=== PATIENT | male | born 1960 | race Caucasian/White ===

== ENCOUNTER 2024-09-28 11:08 | Inpatient (IN) | payer MEDICARE, BC, SELFPAY ==
[2024-09-28] VITALS (24 sets, daily range): BP systolic 128–150; BP diastolic 86–96; PULSE 75–105; RESP 12–18; TEMP 36.4; O2SAT 84–98; BMI 26.9; BMI 27.2
--- NOTE | 2024-09-28 11:32 | CRLHL7_ITS ---
For Patients: As a result of the Century Cures Act, medical imaging exams and procedure reports are released immediately into your electronic medical record. You may view this report before your referring provider. If you have questions, please contact your health care provider. Indication: Headache, balance and vision problems Technique: Volumetric multidetector CT images of the head were obtained without the administration of low osmolar intravenous contrast. Comparison: None available Findings: There is no intra-axial or extra-axial fluid collection. There is demonstration of a hyperdense circumscribed expansile mass arising from the pituitary gland with widening of the sella turcica and extension into the suprasellar cistern measuring 3.9 x 1.7 x 1.8 centimeters in craniocaudal, transverse and AP dimensions respectively. There is moderate effacement of the optic chiasm. There is age-related cortical atrophy with mild sulcal widening and ex vacuo dilatation of the lateral ventricles. There are chronic small vessel disease changes in the subcortical and periventricular white matter without lost felton-white differentiation. The orbits and their contents are grossly within normal limits. The bony calvarium is grossly intact. The paranasal sinuses are clear. The mastoid air cells are well aerated. 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 Further evaluation with pituitary protocol MRI is recommended. No other acute intracranial abnormalities are appreciated. Please note that all CT scans at this facility use dose modulation, iterative reconstruction, and/or weight-based dosing when appropriate to reduce radiation dose to as low as reasonably achievable. Dictated by Deejay Tellez MD @ 09/28/2024 1:20:06 PM (Electronically Signed)
--- NOTE | 2024-09-28 11:33 | CRLHL7_ITS ---
For Patients: As a result of the Century Cures Act, medical imaging exams and procedure reports are released immediately into your electronic medical record. You may view this report before your referring provider. If you have questions, please contact your health care provider. INDICATION: Headache, balance and vision problems. TECHNIQUE: CTA neck with contrast bolus tracking, 3D angiographic rendering using maximum intensity projection (MIP) and images permanently archived. FINDINGS: Irregular ulcerated plaque is present in the proximal internal carotid arteries bilaterally resulting in mild stenoses on both sides, less than 50 percent by NASCET. There is no significant vertebral artery stenosis or dissection. The soft tissues of the neck are within normal limits. The cervical spine is in normal alignment. Degenerative changes are noted in the cervical spine. IMPRESSION: Ulcerated plaque in the proximal ICAs bilaterally resulting in mild stenoses, less than 50 percent by NASCET. Please note that all CT scans at this facility use dose modulation, iterative reconstruction, and/or weight-based dosing when appropriate to reduce radiation dose to as low as reasonably achievable. Dictated by Randall Nicole MD @ 09/28/2024 2:47:58 PM (Electronically Signed)
--- NOTE | 2024-09-28 11:33 | CRLHL7_ITS ---
For Patients: As a result of the Century Cures Act, medical imaging exams and procedure reports are released immediately into your electronic medical record. You may view this report before your referring provider. If you have questions, please contact your health care provider. INDICATION: Headache, balance and vision problems. TECHNIQUE: CTA head with contrast bolus tracking, 3D angiographic rendering using maximum intensity projection (MIP) and images permanently archived. FINDINGS: There is scattered intracranial atherosclerotic disease. There is normal opacification of the intracranial vasculature. There is no large vessel occlusion. No aneurysm is identified. IMPRESSION: No large vessel occlusion. Please note that all CT scans at this facility use dose modulation, iterative reconstruction, and/or weight-based dosing when appropriate to reduce radiation dose to as low as reasonably achievable. Dictated by Randall Nicole MD @ 09/28/2024 2:49:04 PM (Electronically Signed)
--- NOTE | 2024-09-28 11:36 | ED_ITS ---
HPI - General Adult General Date Seen: 09/28/24 Chief complaint: Neuro Symptoms/Altered Deficit Stated complaint: migraine since Wednesday, unsteady Time Seen by Provider: 09/28/24 11:14 History of Present Illness HPI narrative: Patient is a 64-year-old male here with his girlfriend for evaluation of headache, some vision and balance changes. Patient is a rather meandering historian and history is kind of difficult to obtain. What I have put together is that last weekend he developed a headache which was on both sides of his head, associated with vomiting. Prior to that he had had some neck stiffness which he attributed to gardening. He notes that the vomiting stopped after the weekend but he has continued to have a headache, it sounds like it is more mild and perhaps is more on the right side of his head. He has had some temporal pain although he says that that is not unusual and he will often use some kind of muscle relaxation tool on his face when he has pain in his temples and forehead. At some point, his vision has seemed off. It is very difficult to tell in what way his vision is different. He notes that his right eye is always weaker than the left, he is unable to tell me if the right eye specifically is worse than usual. Initially he said that he was having diplopia, but as we talked further I am not sure that he is having diplopia. His girlfriend also notes that his balance has been wobbly, which she says is new, he says he is always a little bit wobbly. He does deny fevers or unusual rashes, denies head trauma. He is not anticoagulated. 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) ?Z96.642 - Presence of left artificial hip joint (ICD-10) Social History What is your current living situation?: I presently have a place to live Problems where you live: no known problems Problems where you live details: na In the past 12 months, utilities in danger of being shut off: no In past 12 months, lack of transportation kept you from medical appts, meetings, work, or getting things needed for daily living: no In the past 12 mos, have been you worried that your food would run out before you had money to buy more?: never true In the past 12 mos, the food you bought just didn't last and you didn't have money to buy more?: never true Highest level of school completed/degree received: some college, no degree Smoking Status: Former smoker What tobacco products do you use: cigars Do you use any of these nicotine containing products: None Second hand tobacco smoke exposure: No How often do you have a drink containing alcohol: 2-3 times a week Alcohol type: beer How many standard drinks containing alcohol do you have on a typical day: 1 or 2 How often do you have six or more drinks on one occasion: Weekly AUDIT-C Alcohol total score: 6 Non-prescribed substance use: marijuana (any form) Caffeine: Yes (2 cups) How often does anyone, including family, friends and others, physically hurt you : never How often does anyone, including family, friends and others, insult or talk down to you: never How often does anyone, including family, friends and others, threaten you with harm: never How often does anyone, including family, friends and others, scream or curse at you: never service: No Exam Narrative: Exam Narrative: Vital signs reviewed In general, alert, nontoxic elderly male. Looks comfortable. Head: Normocephalic, atraumatic. Eyes: Sclera clear. Pupils equal and reactive. Extraocular movements are full, no nystagmus. ENT: Mucous membranes moist. Throat is normal, tongue midline. No temporal tenderness. Neck: Supple without adenopathy. Heart: Regular rate and rhythm without murmur. Lungs: Clear. No increased work of breathing, crackles or wheezes. Abdomen: Soft, nontender to palpation. Extremities: Well perfused, pulses intact. No significant edema. Neurologic: Alert, conversant. Speech fluent, face symmetric. Moves all extremities equally. Cerebellar function is intact by finger-nose testing. Romberg is negative. However, when I had him take a couple of steps he is fairly unsteady and tends to fall to the right. He may have of field cut on the right, it is a little difficult to assess as he gives differing answers at different times and it is hard to get him to focus his vision centrally rather than glancing over into his peripheral vision. Skin: Warm, dry well perfused. Affect: Normal. Const: Vital Signs, click to edit/add: Vital Signs - 24 hr 09/28/24 15:00 09/28/24 15:02 09/28/24 15:30 Pulse Rate 80 78 76 Respiratory Rate 14 14 16 Blood Pressure 141/89 H Pulse Oximetry 97 96 96 Oxygen Delivery Me thod Room Air Room Air Room Air 09/28/24 15:34 09/28/24 16:00 09/28/24 16:02 Pulse Rate 82 75 76 Respiratory Rate 14 12 12 Blood Pressure 145/96 H 150/96 H Pulse Oximetry 98 98 95 Oxygen Delivery Me thod Room Air Room Air Room Air 09/28/24 16:03 09/28/24 16:30 09/28/24 16:32 Pulse Rate 80 83 Respiratory Rate 14 17 18 Blood Pressure 142/93 H Pulse Oximetry 97 95 Oxygen Delivery Me thod Room Air Room Air Room Air Documenting provider has reviewed patient's vital signs: yes Course Course ED Course: I have ordered a CT of the head and CT angiogram of the head and neck to evaluate for possible intracranial hemorrhage or edema, will look for any evidence of large vessel stenosis or dissection. If these are negative, I think MRI will be warranted to look for more of an ischemic event. I have ordered labs including a CRP and sed rate, my suspicion for temporal arteritis is relat ively low but history and exam are so difficult to nail down that think this needs to be ruled out as well. Labs were most notable for a sodium of 124, we do not have any labs on him recently so I do not know what his baseline sodium is. I reviewed his head CT, he has a hyperdense mass arising from the sella turcica, suspect pituitary adenoma. There is a little bit of surrounding edema. I do not see any hemorrhage or other mass effect. Radiology reports for the CT of the head and CT angiogram of head and neck were reviewed. CT angiogram unremarkable. I gave him 50 mL of hypertonic saline. CRP was 5.7, sed rate 51. Other electrolytes specifically potassium are normal, with the exception of his chloride which is low at 89. Radiology read of the CT of the head consistent with pituitary adenoma, MRI recommended. This is ordered but will not be done until after my shift. In the meantime, I did discuss his care with Neurosurgery 1st the neurosurgery PA and then I talked with the neurosurgeon himself. He reviewed the images. Patient does need to be admitted for hyponatremia, but he felt that otherwise could be managed as an outpatient for the pituitary adenoma. I have added on a couple of labs, he would like a TSH, morning cortisol, prolactin. I did review the MRI on my next shift, attached below, but this was not done until after my shift ended. Patient was signed out with anticipation of admission to the hospitalist service for correction of his sodium. Vital Signs Vital signs: Initial Vital Signs Temperature 97.6 F 09/28/24 11:26 Temperature Source Temporal Artery Scan 09/28/24 11:26 Pulse Rate 91 09/28/24 11:26 Respiratory Rate 18 09/28/24 11:26 Blood Pressure 147/91 H 09/28/24 11:26 Blood Pressure Mean 109 H 09/28/24 11:26 Blood Pressure Position Semi-Fowlers 09/28/24 11:26 Pulse Oximetry 97 09/28/24 11:26 Oxygen Delivery Method Room Air 09/28/24 11:26 Vital Signs Temperature 97.6 F 09/28/24 11:26 Pulse Rate 91 09/28/24 11:26 Respiratory Rate 18 09/28/24 11:26 Blood Pressure 147/91 H 09/28/24 11:26 Pulse Oximetry 97 09/28/24 11:26 Oxygen Delivery Method Room Air 09/28/24 11:26 Temperature 97.6 F 09/28/24 22:07 Pulse Rate 85 09/28/24 23:28 Respiratory Rate 18 09/28/24 22:07 Blood Pressure 130/93 H 09/28/24 22:07 Pulse Oximetry 97 09/28/24 22:07 Oxygen Delivery Method Room Air 09/28/24 22:07 Medications Administered Medications: Discontinued Medications Generic Name Dose Route Start Last Admin Trade Name Freq PRN Reason Stop Dose Admin Enoxaparin Sodium 40 mg 09/28/24 21:00 09/28/24 21:53 Enoxaparin 40 Mg/0.4 Ml Inj SUBCUT 40 mg HS BOSSMAN Administration Sodium Chloride 50 mls @ 33.333 mls/hr 09/28/24 13:59 09/28/24 15:48 3 % Sodium Chloride 500 Ml IV 09/28/24 15:28 Infused ONCE ONE Infusion Sodium Chloride 1,000 mls @ 75 mls/hr 09/28/24 14:52 09/28/24 15:55 0.9 % Sodium Chloride 1000 Ml IV 75 mls/hr .[id number] BOSSMAN Administration Sodium Chloride 1,000 mls @ 125 mls/hr 09/28/24 17:23 09/28/24 21:54 0.9 % Sodium Chloride 1000 Ml IV 125 mls/hr .Q8H BOSSMAN Administration Sodium Chloride 1,000 mls @ 1,000 mls/hr 09/28/24 18:56 09/28/24 19:46 0.9 % Sodium Chloride 1000 Ml IV 09/28/24 19:55 1,000 mls/hr .Q1H BOSSMAN Administration Potassium Chloride 40 meq 09/28/24 18:27 09/28/24 19:46 Potassium Chloride 10 Meq Capsule Er PO 09/28/24 18:28 40 meq ONCE ONE Administration Sodium Chloride 5 ml 09/28/24 21:00 09/28/24 21:53 Sodium Chloride 0.9 % (Flush) 10 Ml Syringe IVF 5 ml BID BOSSMAN Administration Medical Decision Making Lab Data Lab results reviewed: Yes I reviewed the patient's lab results Labs: Lab Results 09/28/24 09/28/24 Range/Units 11:30 11:55 ESR 51 H (2-15) mm/hr Sodium 124 L* (135-149) mmol/L Potassium 3.5 L (3.6-5.1) mmol/L Chloride 89 L (96-114) mmol/L Carbon Dioxide 23 (20-32) mmol/L Anion Gap 12 (7-15) mEq/L BUN 13 (7-30) mg/dL Creatinine 0.9 (0.5-1.5) mg/dL Estimated Creat Clear 73.65 Estimated GFR 95 ml/min Glucose 100 (60-115) mg/dL Calcium 9.2 (8.4-10.6) mg/dL Total Bilirubin 0.9 (0.1-1.5) mg/dL AST 21 (12-35) U/L ALT 18 (4-50) U/L Alkaline Phosphatase 50 (40-150) U/L C-Reactive Protein 5.7 H (0.5-1.0) mg/dL Total Protein 7.4 (6.0-8.3) g/dL Albumin 4.2 (3.3-5.0) g/dL TSH 0.555 (0.270-4.200) uIU/mL Imaging Data CT scan - head: Attestation: I have reviewed the pertinent imaging results. Radiologist's impression: [place] [address] Diagnostic Imaging Report Patient: Juni Nash MR#: [id number] : 1960 Acct:[id number] Loc: ED Service Date: 09/28/[address]: Ordering Physician: Chayito Blum M.D. Date of Service: 09/28/24 Procedure(s): CT head/brain wo con Accession Number(s): [id number] cc: Chayito Blum M.D.; Sumit Wallace M.D.~ For Patients: As a result of the Cures Act, medical imaging exams and procedure reports are released immediately into your electronic medical record. You may view this report before your referring provider. If you have questions, please contact your health care provider. Indication: Headache, balance and vision problems Technique: Volumetric multidetector CT images of the head were obtained without the administration of low osmolar intravenous contrast. Comparison: None available Findings: There is no intra-axial or extra-axial fluid collection. There is demonstration of a hyperdense circumscribed expansile mass arising from the pituitary gland with widening of the sella turcica and extension into the suprasellar cistern measuring 3.9 x 1.7 x 1.8 centimeters in craniocaudal, transverse and AP dimensions respectively. There is moderate effacement of the optic chiasm. There is age-related cortical atrophy with mild sulcal widening and ex vacuo dilatation of the lateral ventricles. There are chronic small vessel disease changes in the subcortical and periventricular white matter without lost felton-white differentiation. The orbits and their contents are grossly within normal limits. The bony calvarium is grossly intact. The paranasal sinuses are clear. The mastoid air cells are well aerated. 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 Further evaluation with pituitary protocol MRI is recommended. No other acute intracranial abnormalities are appreciated. Please note that all CT scans at this facility use dose modulation, iterative reconstruction, and/or weight-based dosing when appropriate to reduce radiation dose to as low as reasonably achievable. Dictated by Deejay Tellez MD @ 09/28/2024 1:20:[address] angiogram head and neck: Attestation: I have reviewed the pertinent imaging results. Radiologist's impression: [place] [address] Diagnostic Imaging Report Patient: Juni Nash MR#: [id number] : 1960 Acct:[id number] Loc: ED Service Date: 09/28/[address]: Ordering Physician: Chayito Blum M.D. Date of Service: 09/28/24 Procedure(s): CT angio head Accession Number(s): [id number] cc: Chayito Blum M.D.; Sumit Wallace M.D.~ For Patients: As a result of the 21st Century Cures Act, medical imaging exams and procedure reports are released immediately into your electronic medical record. You may view this report before your referring provider. If you have questions, please contact your health care provider. INDICATION: Headache, balance and vision problems. TECHNIQUE: CTA head with contrast bolus tracking, 3D angiographic rendering using maximum intensity projection (MIP) and images permanently archived. FINDINGS: There is scattered intracranial atherosclerotic disease. There is normal opacification of the intracranial vasculature. There is no large vessel occlusion. No aneurysm is identified. IMPRESSION: No large vessel occlusion. Please note that all CT scans at this facility use dose modulation, iterative reconstruction, and/or weight-based dosing when appropriate to reduce radiation dose to as low as reasonably achievable. Dictated by Radnall Nicole MD @ 09/28/2024 2:49:04 PM MRI brain pituitary protocol: Attestation: I have reviewed the pertinent imaging results. Radiologist's impression: [address] [address] Diagnostic Imaging Report Patient: Juni Nash MR#: [id number] : 1960 Acct:[id number] Loc: [id number] Service Date: 09/28/[address]: Alethea Duron M.D. Ordering Physician: Chayito Blum M.D. Date of Service: 09/28/24 Procedure(s): MR head/brain wo/w con Accession Number(s): [id number] cc: Chayito Blum M.D.; Sumit Wallace M.D.~ For Patients: As a result of the Cures Act, medical imaging exams and procedure reports are released immediately into your electronic medical record. You may view this report before your referring provider. If you have questions, please contact your health care provider. INDICATION: Abnormal CT, intracranial mass. TECHNIQUE: Multisequence multiplanar MRI of the brain prior to and following administration of 20 cc Dotarem gadolinium-based intravenous contrast. Pituitary protocol was utilized. COMPARISON: Correlated with CT head from earlier the same day 09/28/2024. FINDINGS: No evidence of acute ischemia. Scattered scattered foci of T2 prolongation within the white matter of both cerebral hemispheres typical of mild chronic small vessel ischemic changes. Additional more confluent T2 hyperintensity within the hypothalami and lower basal ganglia likely reflecting edema related to mass effect from a sellar/suprasellar mass. A tiny focus of enhancement within the white matter of the left frontal smith radiata is favored to be vascular in etiology. There is mild diffuse parenchymal volume loss. The ventricles are proportionate to the sulci. Flow voids of the larger intracranial arteries are preserved. Dedicated imaging of the pituitary gland demonstrates a large heterogeneously enhancing sellar/suprasellar mass which is indistinguishable from the pituitary gland, measuring approximately 2.1 x 3.2 x 4.0 cm. The lesion extends to the left lateral tangential line indicating possible cavernous sinus invasion. There is up lifting and distortion of the optic chiasm and infundibulum. Normal calvarial bone marrow signal intensity. Symmetric globes. Mild scattered paranasal sinus mucosal thickening. IMPRESSION: 1. Motion degraded exam. 2. 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 3. Confluent T2/FLAIR hyperintensity, likely edema, within the hypothalami and lower basal ganglia. 4. Mild diffuse parenchymal volume loss and presumed chronic small vessel ischemic changes. 5. Punctate enhancement within the left frontal smith radiata (series 11, image 30) favored to be vascular in etiology. Dictated by Jimenez Shah MD @ 09/28/2024 6:13:22 PM Discharge Plan Discharge Clinical Impression: Adenoma of pituitary, Hyponatremia Patient Disposition: Admitted As Observation Condition: Stable
[2024-09-28 12:26] LABS: Chloride* 89 mmol/L (96-114)
[2024-09-28 12:27] LABS: Albumin* 4.2 g/dL (3.3-5.0); Potassium* 3.5 mmol/L (3.6-5.1)
[2024-09-28 12:29] LABS: Blood Urea Nitrogen* 13 mg/dL (7-30); Creatinine* 0.9 mg/dL (0.5-1.5); Est. Creatinine Clearance* 73.65; Estimated Glomerular Filt Rate 95 ml/min
[2024-09-28 12:30] LABS: Alanine Aminotransferase* 18 U/L (4-50); Alkaline Phosphatase* 50 U/L (40-150); Anion Gap 12 mEq/L (7-15); Aspartate Amino Transferase* 21 U/L (12-35); Bilirubin Total* 0.9 mg/dL (0.1-1.5); Calcium* 9.2 mg/dL (8.4-10.6); Carbon Dioxide* 23 mmol/L (20-32); Glucose* 100 mg/dL (60-115); Total Protein* 7.4 g/dL (6.0-8.3)
[2024-09-28 12:33] LABS: C Reactive Protein* 5.7 mg/dL (0.5-1.0)
[2024-09-28 12:38] LABS: Sodium* 124 mmol/L (135-149)
[2024-09-28 12:44] LABS: Erythrocyte SedimentationRate* 51 mm/hr (2-15)
--- NOTE | 2024-09-28 13:27 | CRLHL7_ITS ---
For Patients: As a result of the Century Cures Act, medical imaging exams and procedure reports are released immediately into your electronic medical record. You may view this report before your referring provider. If you have questions, please contact your health care provider. INDICATION: Abnormal CT, intracranial mass. TECHNIQUE: Multisequence multiplanar MRI of the brain prior to and following administration of 20 cc Dotarem gadolinium-based intravenous contrast. Pituitary protocol was utilized. COMPARISON: Correlated with CT head from earlier the same day 09/28/2024. FINDINGS: No evidence of acute ischemia. Scattered scattered foci of T2 prolongation within the white matter of both cerebral hemispheres typical of mild chronic small vessel ischemic changes. Additional more confluent T2 hyperintensity within the hypothalami and lower basal ganglia likely reflecting edema related to mass effect from a sellar/suprasellar mass. A tiny focus of enhancement within the white matter of the left frontal smith radiata is favored to be vascular in etiology. There is mild diffuse parenchymal volume loss. The ventricles are proportionate to the sulci. Flow voids of the larger intracranial arteries are preserved. Dedicated imaging of the pituitary gland demonstrates a large heterogeneously enhancing sellar/suprasellar mass which is indistinguishable from the pituitary gland, measuring approximately 2.1 x 3.2 x 4.0 cm. The lesion extends to the left lateral tangential line indicating possible cavernous sinus invasion. There is up lifting and distortion of the optic chiasm and infundibulum. Normal calvarial bone marrow signal intensity. Symmetric globes. Mild scattered paranasal sinus mucosal thickening. IMPRESSION: 1. Motion degraded exam. 2. 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 3. Confluent T2/FLAIR hyperintensity, likely edema, within the hypothalami and lower basal ganglia. 4. Mild diffuse parenchymal volume loss and presumed chronic small vessel ischemic changes. 5. Punctate enhancement within the left frontal smith radiata (series 11, image 30) favored to be vascular in etiology. Dictated by Jimenez Shah MD @ 09/28/2024 6:13:22 PM (Electronically Signed)
[2024-09-28] MEDS: 3 % SODIUM CHLORIDE 500 ml 50 ML 33.33 ML IV (14:17)
[2024-09-28] MEDS: 0.9 % SODIUM CHLORIDE 1000 ml 1,000 ML 75 ML IV (15:55)
--- NOTE | 2024-09-28 16:49 | P.IMHP_ITS ---
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 Confluent T2/FLAIR hyperintensity, likely edema, within the hypothalami and lower basal ganglia. Mild diffuse parenchymal volume loss and presumed chronic small vessel ischemic changes. Punctate enhancement within the left frontal smith radiata (series 11, image 30) favored to be vascular in etiology ED provider discussed with Neurosurgery, recommending outpatient follow-up in the neurology clinic. Requesting following labs prolactin, TSH, a.m. 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 Confluent T2/FLAIR hyperintensity, likely edema, within the hypothalami and lower basal ganglia. Discussed with Dr. Wheeler, Neurosurgery, following admission to floor. Recommending transfer for neuro evaluation. Will likely need non emergent surgical intervention. Current findings have likely been slowly developing. Not recommending steroids at this time, awaiting a.m. cortisol. Currently 8 hour bed wait for [facility]. Discussed with telehospitalist, Dr. Reyes, accepts for transfer Status: Acute (3) Visual changes: Problem comment: MRI findings as noted #3 Status: Acute (4) Hyponatremia: Problem comment: Sodium 124 Given 50ml hypertonic 3% saline in ED Recheck on admission to floor, 120. Likely dry, has not eaten or drank much over past week. Will give 1L NS bolus and recheck in 2 hours. Maintenance NS 125ml Status: Acute (5) Hypokalemia: Problem comment: Mild, potassium 3.5 Oral replacement, monitor Status: Acute (6) Carotid stenosis, bilateral: Problem comment: Mild, <50% Lipid panel ordered Status: Acute Total Time Spent Total Time Spent: Today I spent 90 minutes seeing the patient, reviewing Expanse and EPIC notes/diagnostics, discussing the care plan with our care time that includes social work, PT/OT, pharmacy, RT, halfway and documenting my impressions and plan in the medical record. Hospitalist- H&P: ANKIT History of Present Illness Date Seen: 09/28/24 Chief complaint: migraine since Wednesday, unsteady Narrative: Juni Nash is a 64 year old male without known significant past medical history other than left shoulder surgery and left SHAHEEN. Has not seen a medical provider in the last 12-13 years. Is not on any prescription medications. Does take several supplements/vitamins. Is admitted to the medical floor from the ED for further management hyponatremia and headache of 6 days with persistent visual changes. Patient is seen with his partner, Malena, at bedside. She stays with him on the weekends. Patient reports onset of mild headache Wednesday09/22/2024. Quickly escalated to an intense headache leading to nausea and vomiting. Nausea and vomiting lasted through Wednesday and has since resolved. Headache has persisted a nd is finally reported as ?little today. Headache has been frontal as well as both temples. He tells me it felt like what he would in manage in a cluster or migraine headache would feel like. He has no history of those types of headaches and rarely gets headaches. Also reports change in vision which persists now. Reports double vision, seen 2 semi trucks in front of them on the way to the ED today 1 in fact there is only 1. Tells me he sees odd angles on huang and ceilings from the right eye. No curtains, tunnel vision, spots, floaters. No loss of vision in either eye. No ocular pain. Denies ringing in the ears. No change in smell. Denies any dizziness or lightheadedness. No vertiginous symptoms. Denies facial droop. No slurring of speech. No aphasia. Denies recent fevers or chills. Denies chest pain or shortness of breath. Denies abdominal pain. No change in stools other than decreased as he has not eaten much. Denies change in urination or UTI symptoms. No blood in his urine. No swelling of the hands or feet. No focal weakness of the extremities. In general, feels weak/fatigued. States he has not slept in days. Tosses and turns in bed with his headache, eventually moving to a different room. Has not eaten much since vomiting ended on Wednesday. Is currently hungry. His friend Malena says he has been eating peanuts today. Tells me he has never been treated for hypertension, hyperlipidemia, no known lung disease, no diabetes. Has not kept up-to-date with his routine exams. Nonsmoker. Drinks 2 drinks maybe twice a week. Has no current PCP. Last saw Dr. Wallace 12-13 years ago. Wishes to be full code. Review of Systems Narrative: REVIEW OF SYSTEMS: Complete review of systems performed and negative unless otherwise stated in HPI or below. 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) ?Z96.642 - Presence of left artificial hip joint (ICD-10) Social History What is your current living situation?: I presently have a place to live Problems where you live: no known problems Problems where you live details: na In the past 12 months, utilities in danger of being shut off: no In past 12 months, lack of transportation kept you from medical appts, meetings, work, or getting things needed for daily living: no In the past 12 mos, have been you worried that your food would run out before you had money to buy more?: never true In the past 12 mos, the food you bought just didn't last and you didn't have money to buy more?: never true Highest level of school completed/degree received: some college, no degree Smoking Status: Former smoker What tobacco products do you use: cigars Do you use any of these nicotine containing products: None Second hand tobacco smoke exposure: No How often do you have a drink containing alcohol: 2-3 times a week Alcohol type: beer How many standard drinks containing alcohol do you have on a typical day: 1 or 2 How often do you have six or more drinks on one occasion: Weekly AUDIT-C Alcohol total score: 6 Non-prescribed substance use: marijuana (any form) Caffeine: Yes (2 cups) How often does anyone, including family, friends and others, physically hurt you : never How often does anyone, including family, friends and others, insult or talk down to you: never How often does anyone, including family, friends and others, threaten you with harm: never How often does anyone, including family, friends and others, scream or curse at you: never service: No Meds Home Medications and Allergies Home Medications ?Medication ?Instructions ?Recorded ?Confirmed ?Type amoxicillin 500 mg capsule 2,000 mg PO ONCE 05/07/22 09/28/24 History Allergies Allergy/AdvReac Type Severity Reaction Status Date / Time No Known Drug Allergies Allergy Verified 09/28/24 13:00 Exam 2 Narrative: Exam Narrative: PHYSICAL EXAM General: Pleasant, appears tired otherwise NAD HEENT: Normocephalic, atraumatic, sclera white but blood shot, EOMI, oral mucosa dry Cardiovascular: RRR, S1S2. No pitting edema Pulmonary: CTA bilaterally without rhonchi, rales, expiratory wheezes. No dyspnea on RA Abdominal: Soft, nondistended, NTTP Neurological: Alert, answering questions appropriately but slowed, no confusion, no facial droop, cranial nerves intact, UE/LE strength equal 5/5. When attempting to feed self, eye-hand to mouth coordination noted to be off by nursing staff Extremities: No gross joint deformity or swelling. AROMI. Neurovascularly intact Skin: Warm, dry. Const: Vital Signs, click to edit/add: Vital Signs - 24 hr 09/28/24 11:26 09/28/24 13:26 09/28/24 13:26 Temperature 97.6 F Pulse Rate 90 90 Pulse Rate [Pulse Oximeter] 91 Respiratory Rate 18 Blood Pressure 143/91 H 143/91 H Blood Pressure [Ri ght Upper Arm] 147/91 H Pulse Oximetry 97 94 94 Oxygen Delivery Me thod Room Air Room Air Room Air 09/28/24 13:27 09/28/24 13:30 09/28/24 13:32 Temperature Pulse Rate 93 87 90 Pulse Rate [Pulse Oximeter] Respiratory Rate Blood Pressure 128/87 Blood Pressure [Ri ght Upper Arm] Pulse Oximetry 96 94 89 Oxygen Delivery Me thod Room Air Room Air Room Air 09/28/24 13:36 09/28/24 14:00 09/28/24 14:02 Temperature Pulse Rate 82 105 H Pulse Rate [Pulse Oximeter] 92 Respiratory Rate 18 Blood Pressure 132/94 H Blood Pressure [Ri ght Upper Arm] 128/87 Pulse Oximetry 96 92 84 [facility] 09/28/24 14:30 09/28/24 14:31 09/28/24 15:00 Temperature Pulse Rate 84 84 80 Pulse Rate [Pulse Oximeter] Respiratory Rate 16 17 14 Blood Pressure 143/95 H Blood Pressure [Ri ght Upper Arm] Pulse Oximetry 96 96 97 [facility] Room Air 09/28/24 15:02 09/28/24 15:30 09/28/24 15:34 Temperature Pulse Rate 78 76 82 Pulse Rate [Pulse Oximeter] Respiratory Rate 14 16 14 Blood Pressure 141/89 H 145/96 H Blood Pressure [Ri ght Upper Arm] Pulse Oximetry 96 96 98 [facility] Room Air 09/28/24 16:00 09/28/24 16:02 Temperature Pulse Rate 75 76 Pulse Rate [Pulse Oximeter] Respiratory Rate 12 12 Blood Pressure 150/96 H Blood Pressure [Ri ght Upper Arm] Pulse Oximetry 98 95 [facility] Air Hospitalist - H&P: Result Labs Labs: [facility] 09/28/24 11:55 Sodium 124 L* Potassium 3.5 L Chloride 89 L Carbon Dioxide 23 BUN 13 Creatinine 0.9 Glucose 100 Calcium 9.2 Liver Function 09/28/24 Range/Units 11:55 Total Bilirubin 0.9 (0.1-1.5) mg/dL AST 21 (12-35) U/L ALT 18 (4-50) U/L Alkaline Phosphatase 50 (40-150) U/L Albumin 4.2 (3.3-5.0) g/dL Imaging CT scan - head: Attestation: I have reviewed the pertinent imaging results. Radiologist's impression: There is no intra-axial or extra-axial fluid collection. There is demonstration of a hyperdense circumscribed expansile mass arising from the pituitary gland with widening of the sella turcica and extension into the suprasellar cistern measuring 3.9 x 1.7 x 1.8 centimeters in craniocaudal, transverse and AP dimensions respectively. There is moderate effacement of the optic chiasm. There is age-related cortical atrophy with mild sulcal widening and ex vacuo dilatation of the lateral ventricles. There are chronic small vessel disease changes in the subcortical and periventricular white matter without lost felton-white differentiation. The orbits and their contents are grossly within normal limits. The bony calvarium is grossly intact. The paranasal sinuses are clear. The mastoid air cells are well aerated. 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 Further evaluation with pituitary protocol MRI is recommended. No other acute intracranial abnormalities are appreciated. CTA head: Attestation: I have reviewed the pertinent imaging results. Radiologist's impression: There is scattered intracranial atherosclerotic disease. There is normal opacification of the intracranial vasculature. There is no large vessel occlusion. No aneurysm is identified. IMPRESSION: No large vessel occlusion. CTA neck: Attestation: I have reviewed the pertinent imaging results. Radiologist's impression: Irregular ulcerated plaque is present in the proximal internal carotid arteries bilaterally resulting in mild stenoses on both sides, less than 50 percent by NASCET. There is no significant vertebral artery stenosis or dissection. The soft tissues of the neck are within normal limits. The cervical spine is in normal alignment. Degenerative changes are noted in the cervical spine. IMPRESSION: Ulcerated plaque in the proximal ICAs bilaterally resulting in mild stenoses, less than 50 percent by NASCET. MRI brain: Attestation: I have reviewed the pertinent imaging results. Radiologist's impression: No evidence of acute ischemia. Scattered scattered foci of T2 prolongation within the white matter of both cerebral hemispheres typical of mild chronic small vessel ischemic changes. Additional more confluent T2 hyperintensity within the hypothalami and lower basal ganglia likely reflecting edema related to mass effect from a sellar/suprasellar mass. A tiny focus of enhancement within the white matter of the left frontal smith radiata is favored to be vascular in etiology. There is mild diffuse parenchymal volume loss. The ventricles are proportionate to the sulci. Flow voids of the larger intracranial arteries are preserved. Dedicated imaging of the pituitary gland demonstrates a large heterogeneously enhancing sellar/suprasellar mass which is indistinguishable from the pituitary gland, measuring approximately 2.1 x 3.2 x 4.0 cm. The lesion extends to the left lateral tangential line indicating possible cavernous sinus invasion. There is up lifting and distortion of the optic chiasm and infundibulum. Normal calvarial bone marrow signal intensity. Symmetric globes. Mild scattered paranasal sinus mucosal thickening. IMPRESSION: 1. Motion degraded exam. 2. 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 3. Confluent T2/FLAIR hyperintensity, likely edema, within the hypothalami and lower basal ganglia. 4. Mild diffuse parenchymal volume loss and presumed chronic small vessel ischemic changes. 5. Punctate enhancement within the left frontal smith radiata (series 11, image 30) favored to be vascular in etiology.
[2024-09-28 18:31] LABS: Basophils Absolute Auto 0.04 K/uL (0.00-0.30); Basophils Percent Auto 0.5 % (0.0-3.0); Eosinophils Absolute Auto 0.33 K/uL (0.00-0.50); Eosinophils Percent Auto 3.7 % (0.0-7.0); Hematocrit* 37.5 % (37.0-53.0); Hemoglobin* 13.5 gm/dL (13.5-17.5); Immature Granulocytes Abs Auto 0.02 K/uL (0.00-0.30); Immature Granulocytes Pct Auto 0.2 %; Lymphocytes Percent Auto 29.3 % (20-44); Mean Corpuscular HGB Conc 36 gm/dL (32-36); Mean Corpuscular Hemoglobin 31 pg (26-34); Mean Corpuscular Volume 86 fL (80-100); Monocytes Percent Auto 10.1 % (0.0-11.0); Neutrophils Absolute Auto 4.98 K/uL (1.7-7.0); Neutrophils Percent Auto 56.2 % (42.0-72.0); Platelet Count* 247 K/uL (140-440); RDW Coefficient of Variation % 11.5 % (11.5-15.5); Red Blood Count* 4.34 m/uL (4.30-5.90); White Blood Count* 8.87 K/uL (4.50-11.00)
[2024-09-28 18:46] LABS: Slide Review Reflex No
[2024-09-28 18:51] LABS: Sodium* 120 mmol/L (135-149)
[2024-09-28] MEDS: POTASSIUM CHLORIDE 10 MEQ CAPSULE ER 40 MEQ PO (19:46)
[2024-09-28] MEDS: 0.9 % SODIUM CHLORIDE 1000 ml 1,000 ML IV (19:46)
[2024-09-28 20:11] LABS: TSH With Reflex to FT4* 0.555 uIU/mL (0.270-4.200)
--- NOTE | 2024-09-28 21:16 | P.DS_ITS ---
DS: Providers Provider Date Seen: 09/28/24 Date of admission: 09/28/24 17:27 Primary care physician: Sumit Wallace MD Admitting Clinician: AZIZA Escalante PA-C Consults: 09/28/24 17:23 Consult to Occupational Therapy [CONS] Routine Comment: Reason(s) for OT Consult:: Evaluate and Treat Any Restrictions?:: No Restrictions Consult to Physical Therapy [CONS] Routine Comment: Reason(s) for PT Consult:: Evaluate and Treat Any Restrictions?:: No Restrictions Attending Physician on discharge: AZIZA Escalante PA-C DS: Diagnosis Discharge Diagnosis (1) Headache: Status: Acute Problem details: Onset 6 days ago, 09/22 Nausea, vomiting, visual changes CT head shows Demonstration of a 3.9 centimeter in greatest dimension circumscribed hyperdense mass arising from the pituitary gland with extension into the suprasellar cistern and effacement of the optic chiasm 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 Confluent T2/FLAIR hyperintensity, likely edema, within the hypot halami and lower basal ganglia. Mild diffuse parenchymal volume loss and presumed chronic small vessel ischemic changes. Punctate enhancement within the left frontal smith radiata (series 11, image 30) favored to be vascular in etiology ED provider discussed with Neurosurgery, recommending outpatient follow-up in the neurology clinic. Requesting following labs prolactin, TSH, a.m. 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 Confluent T2/FLAIR hyperintensity, likely edema, within the hypothalami and lower basal ganglia. Discussed with Dr. Wheeler, Neurosurgery, following admission to floor. Recommending transfer for neuro evaluation. Will likely need non emergent surgical intervention. Current findings have likely been slowly developing. Not recommending steroids at this time, awaiting a.m. cortisol. Currently 8 hour bed wait for [facility]. Discussed with telehospitalist, Dr. Reyes, accepts for transfer (3) Visual changes: Status: Acute Problem details: MRI findings as noted #3 (4) Hyponatremia: Status: Acute Problem details: Sodium 124 Given 50ml hypertonic 3% saline in ED Recheck on admission to floor, 120. Likely dry, has not eaten or drank much over past week. Will give 1L NS bolus and recheck in 2 hours. Maintenance NS 125ml (5) Hypokalemia: Status: Acute Problem details: Mild, potassium 3.5 Oral replacement, monitor (6) Carotid stenosis, bilateral: Status: Acute Problem details: Mild, <50% Lipid panel ordered DS: Summary Hospital Course Hospital Course: 6 day headache with nausea and vomiting (resolved), visual changes (which persists). Imaging concerning for pituitary adenoma with edema. Lives alone and unsafe to discharge this way. Neurosurgery recommending transfer for evaluation and treatment planning. Accepted by Dr. Reyes, Telehealth Hospitalist. Awaiting bed availability. Hyponatremia 124 in ED. Did not respond to 50ml 3% hypertonic saline. Na dropped to 120. Likely dry. Bolus 1L. Improved to 122. Continue IV hydration with NS, monitoring Na Status at Discharge Functional status at discharge: independent ambulation Overall status at discharge: patient is not back to baseline Time Spent with Patient Time attestation: Total time spent providing and/or coordinating discharge services: Time spent: Greater than 30 minutes Exam Narrative: Exam Narrative: PHYSICAL EXAM General: Pleasant, appears tired otherwise NAD HEENT: Normocephalic, atraumatic, sclera white but blood shot, EOMI, oral mucosa dry Cardiovascular: RRR, S1S2. No pitting edema Pulmonary: CTA bilaterally without rhonchi, rales, expiratory wheezes. No dyspn ea on RA Abdominal: Soft, nondistended, NTTP Neurological: Alert, answering questions appropriately but slowed, no confusion, no facial droop, cranial nerves intact, UE/LE strength equal 5/5. When att empting to feed self, eye-hand to mouth coordination noted to be off by nursing staff Extremities: No gross joint deformity or swelling. AROMI. Neurovascularly intact Skin: Warm, dry. Const: Vital Signs, click to edit/add: Vital Signs - 24 hr 09/28/24 11:26 09/28/24 13:26 09/28/24 13:26 Temperature 97.6 F Pulse Rate 90 90 Pulse Rate [Pulse Oximeter] 91 Pulse Rate [Right Radial] Respiratory Rate 18 Blood Pressure 143/91 H 143/91 H Blood Pressure [Ri ght Arm] Blood Pressure [Ri ght Upper Arm] 147/91 H Pulse Oximetry 97 94 94 [facility] Room Air Room Air 09/28/24 13:27 09/28/24 13:30 09/28/24 13:32 Temperature Pulse Rate 93 87 90 Pulse Rate [Pulse Oximeter] Pulse Rate [Right Radial] Respiratory Rate Blood Pressure 128/87 Blood Pressure [Ri ght Arm] Blood Pressure [Ri ght Upper Arm] Pulse Oximetry 96 94 89 Oxygen Delivery [facility] Room Air Room Air Room Air 09/28/24 13:36 09/28/24 14:00 09/28/24 14:02 Temperature Pulse Rate 82 105 H Pulse Rate [Pulse Oximeter] 92 Pulse Rate [Right Radial] Respiratory Rate 18 Blood Pressure 132/94 H Blood Pressure [Ri ght Arm] Blood Pressure [Ri ght Upper Arm] 128/87 Pulse Oximetry 96 92 84 L Oxygen Delivery [facility] Room Air Room Air Room Air 09/28/24 14:30 09/28/24 14:31 09/28/24 15:00 Temperature Pulse Rate 84 84 80 Pulse Rate [Pulse Oximeter] Pulse Rate [Right Radial] Respiratory Rate 16 17 14 Blood Pressure 143/95 H Blood Pressure [Ri ght Arm] Blood Pressure [Ri ght Upper Arm] Pulse Oximetry 96 96 97 Oxygen Delivery [facility] Room Air Room Air Room Air 09/28/24 15:02 09/28/24 15:30 09/28/24 15:34 Temperature Pulse Rate 78 76 82 Pulse Rate [Pulse Oximeter] Pulse Rate [Right Radial] Respiratory Rate 14 16 14 Blood Pressure 141/89 H 145/96 H Blood Pressure [Ri ght Arm] Blood Pressure [Ri ght Upper Arm] Pulse Oximetry 96 96 98 Oxygen Delivery [facility] Room Air Room Air Room Air 09/28/24 16:00 09/28/24 16:02 09/28/24 16:03 Temperature Pulse Rate 75 76 80 Pulse Rate [Pulse Oximeter] Pulse Rate [Right Radial] Respiratory Rate 12 12 14 Blood Pressure 150/96 H Blood Pressure [Ri ght Arm] Blood Pressure [Ri ght Upper Arm] Pulse Oximetry 98 95 97 Oxygen Delivery [facility] Room Air Room Air Room Air 09/28/24 16:30 09/28/24 16:32 09/28/24 17:42 Temperature 97.6 F Pulse Rate 83 Pulse Rate [Pulse Oximeter] Pulse Rate [Right Radial] 86 Respiratory Rate 17 18 18 Blood Pressure 142/93 H Blood Pressure [Ri ght Arm] 146/86 H Blood Pressure [Ri ght Upper Arm] Pulse Oximetry 95 95 Oxygen Delivery [facility] Room Air Room Air Room Air 09/28/24 17:43 09/28/24 19:00 Temperature 97.6 F 97.6 F Pulse Rate Pulse Rate [Pulse Oximeter] Pulse Rate [Right Radial] 86 90 Respiratory Rate 18 18 Blood Pressure Blood Pressure [Ri ght Arm] 146/86 H 148/88 H Blood Pressure [Ri ght Upper Arm] Pulse Oximetry 95 97 Oxygen Delivery [facility] Room Air Room Air DS: Data Data Completed and Pending Pending studies at discharge: Prolactin pending AM Cortisol ordered for Wednesday morning Labs on day of discharge: Labs from last 24 hours 09/28/24 09/28/24 09/28/24 20:54 18:03 11:55 WBC 8.87 RBC 4.34 Hgb 13.5 Hct 37.5 MCV 86 MCH 31 MCHC 36 RDW Coeff of Kiara 11.5 Plt Count 247 Neut % (Auto) 56.2 Lymph % (Auto) 29.3 Mayes % (Auto) 10.1 Eos % (Auto) 3.7 Baso % (Auto) 0.5 Neut # (Auto) 4.98 Lymph # (Auto) 2.60 Mayes # (Auto) 0.90 Eos # (Auto) 0.33 Baso # (Auto) 0.04 Abs Immat Gran (auto) 0.02 Imm/Tot Granulo (auto) 0.2 ESR 51 H Sodium Pending 120 L* 124 L* Potassium 3.5 L Chloride 89 L Carbon Dioxide 23 Anion Gap 12 BUN 13 Creatinine 0.9 Estimated Creat Clear 73.65 Estimated GFR 95 Glucose 100 Calcium 9.2 Total Bilirubin 0.9 AST 21 ALT 18 Alkaline Phosphatase 50 C-Reactive Protein 5.7 H Total Protein 7.4 Albumin 4.2 TSH Prolactin Baseline 09/28/24 11:30 WBC RBC Hgb Hct MCV MCH MCHC RDW Coeff of Kiara Plt Count Neut % (Auto) Lymph % (Auto) Mayes % (Auto) Eos % (Auto) Baso % (Auto) Neut # (Auto) Lymph # (Auto) Mayes # (Auto) Eos # (Auto) Baso # (Auto) Abs Immat Gran (auto) Imm/Tot Granulo (auto) ESR Sodium Potassium Chloride Carbon Dioxide Anion Gap BUN Creatinine Estimated Creat Clear Estimated GFR Glucose Calcium Total Bilirubin AST ALT Alkaline Phosphatase C-Reactive Protein Total Protein Albumin TSH 0.555 Prolactin Baseline Pending Imaging CT scan - head: Attestation: I have reviewed the pertinent imaging results. Radiologist's impression: There is no intra-axial or extra-axial fluid collection. There is demonstration of a hyperdense circumscribed expansile mass arising from the pituitary gland with widening of the sella turcica and extension into the suprasellar cistern measuring 3.9 x 1.7 x 1.8 centimeters in craniocaudal, transverse and AP dimensions respectively. There is moderate effacement of the optic chiasm. There is age-related cortical atrophy with mild sulcal widening and ex vacuo dilatation of the lateral ventricles. There are chronic small vessel disease changes in the subcortical and periventricular white matter without lost felton-white differentiation. The orbits and their contents are grossly within normal limits. The bony calvarium is grossly intact. The paranasal sinuses are clear. The mastoid air cells are well aerated. 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 Further evaluation with pituitary protocol MRI is recommended. No other acute intracranial abnormalities are appreciated. MR Brain: Attestation: I have reviewed the pertinent imaging results. Radiologist's impression: No evidence of acute ischemia. Scattered scattered foci of T2 prolongation within the white matter of both cerebral hemispheres typical of mild chronic small vessel ischemic changes. Additional more confluent T2 hyperintensity within the hypothalami and lower basal ganglia likely reflecting edema related to mass effect from a sellar/suprasellar mass. A tiny focus of enhancement within the white matter of the left frontal smith radiata is favored to be vascular in etiology. There is mild diffuse parenchymal volume loss. The ventricles are proportionate to the sulci. Flow voids of the larger intracranial arteries are preserved. Dedicated imaging of the pituitary gland demonstrates a large heterogeneously enhancing sellar/suprasellar mass which is indistinguishable from the pituitary gland, measuring approximately 2.1 x 3.2 x 4.0 cm. The lesion extends to the left lateral tangential line indicating possible cavernous sinus invasion. There is up lifting and distortion of the optic chiasm and infundibulum. Normal calvarial bone marrow signal intensity. Symmetric globes. Mild scattered paranasal sinus mucosal thickening. IMPRESSION: 1. Motion degraded exam. 2. 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 3. Confluent T2/FLAIR hyperintensity, likely edema, within the hypothalami and lower basal ganglia. 4. Mild diffuse parenchymal volume loss and presumed chronic small vessel ischemic changes. 5. Punctate enhancement within the left frontal smith radiata (series 11, image 30) favored to be vascular in etiology. CT- Other: Attestation: I have reviewed the pertinent imaging results. Radiologist's impression: CTA neck with contrast bolus tracking, 3D angiographic rendering using maximum intensity projection (MIP) and images permanently archived. FINDINGS: Irregular ulcerated plaque is present in the proximal internal carotid arteries bilaterally resulting in mild stenoses on both sides, less than 50 percent by NASCET. There is no significant vertebral artery stenosis or dissection. The soft tissues of the neck are within normal limits. The cervical spine is in normal alignment. Degenerative changes are noted in the cervical spine. IMPRESSION: Ulcerated plaque in the proximal ICAs bilaterally resulting in mild stenoses, less than 50 percent by NASCET. CTA head with contrast bolus tracking, 3D angiographic rendering using maximum intensity projection (MIP) and images permanently archived. FINDINGS: There is scattered intracranial atherosclerotic disease. There is normal opacification of the intracranial vasculature. There is no large vessel occlusion. No aneurysm is identified. IMPRESSION: No large vessel occlusion. Discharge Plan Discharge Disposition: [facility] Discharge Location: [facility] Date of Admission: 09/28/24 17:27 Attending Provider on Discharge: Nena Mejia Primary Care Provider: Sumit Wallace Condition: Stable Discharge Orders: Transfer of Care to Other Hospital (ORDER); Ordered 09/28/24 Ordered By: Nena Mejia Additional Instructions: Follow Up appointment scheduled with Dr. Wallace at the [facility], on October 03 at 4:00 PM. [facility] [address] [place] [address] Oxygen: No Urinary Catheter: No Drips/Lines: peripheral IV, NS Services not available here: Neurosurgery
[2024-09-28 21:17] LABS: Sodium* 122 mmol/L (135-149)
[2024-09-28] MEDS: ENOXAPARIN 40 MG/0.4 ML INJ SUBCUT (21:53)
[2024-09-28] MEDS: SODIUM CHLORIDE 0.9 % (FLUSH) 10 ML SYRINGE 5 ML IVF (21:53)
[2024-09-28] MEDS: 0.9 % SODIUM CHLORIDE 1000 ml 1,000 ML 125 ML IV (21:54)
[2024-09-28 23:40] LABS: Sodium* 125 mmol/L (135-149)
--- NOTE | 2024-09-29 00:35 | PC.NURSE ---
Discharge note: Patient has been monitored during his stay at the unit. Vital signs has been stable. At 2100, Na+ level checked was 122 from 120 after the bolus N/S 1000mg given. Repeat at 2300 was 125. Hospitalized ordered N/S 125ml/hr to be reduced to 75ml/hr pending transfer to neuro. Alert and oriented, ambulated SBA to and from BR. Nurse to nurse report given at 0000. EMS arrived at 0015 and patient finally left the unit at 0025.
[2024-09-30 12:08] LABS: Prolactin 4.2 ng/mL (2.1-17.7)
== END 2024-09-29 00:25 | disposition short-term general hospital (02) | DRG 644 ==
LOC: ED 15:10 → MEDSURG 17:27
PROVIDERS: Admitting Provider Physician Assistant; Emergency Provider Emergency Medicine; PCP Internal Medicine; Visit Provider Family Medicine
DX: D35.2 Benign neoplasm of pituitary gland (principal); E87.1 Hypo-osmolality and hyponatremia; R51.9 Headache, unspecified; E87.6 Hypokalemia; I65.23 Occlusion and stenosis of bilateral carotid arteries; Z96.642 Presence of left artificial hip joint; H53.9 Unspecified visual disturbance
CPT/HCPCS: 36415; 70450; 70496; 70498; 70553; 80048; 80053; 80061; 82533; 84146; 84295; 84443; 85025; 85027; 85651; 86140; 99284; 99285; A9270; A9575; J1650; J7030; J7131; Q9967

== ENCOUNTER 2024-09-29 00:20 | Outpatient (CLI) | payer MEDICARE, BC, SELFPAY | END 2024-09-29 00:21 | disposition home or self-care (01) | LOC: AMB 08:42 | PROVIDERS: PCP Internal Medicine; Visit Provider Family Medicine | DX: D35.2 Benign neoplasm of pituitary gland (principal); E87.1 Hypo-osmolality and hyponatremia | CPT/HCPCS: A0425; A0429 ==

== ENCOUNTER 2024-10-04 14:07 | Outpatient (CLI) | payer MEDICARE, BC, SELFPAY | END 2024-10-04 14:08 | disposition home or self-care (01) | LOC: NFLDREF 14:08 | PROVIDERS: PCP Internal Medicine; Visit Provider Internal Medicine | DX: D35.2 Benign neoplasm of pituitary gland (principal); E87.1 Hypo-osmolality and hyponatremia | CPT/HCPCS: 80053 ==

== ENCOUNTER 2025-04-19 11:25 | Outpatient (CLI) | payer MEDICARE, BC, SELFPAY | END 2025-04-19 11:26 | disposition home or self-care (01) | LOC: NFLDREF 11:26 | PROVIDERS: PCP Internal Medicine; Visit Provider Internal Medicine | DX: Z01.818 Encounter for other preprocedural examination (principal) | CPT/HCPCS: 80053 ==